=== PATIENT | male | born 1995 | race Caucasian/White ===

== ENCOUNTER 2025-08-29 21:10 | Emergency (ER) | payer OTHER ==
[~2025-08-29] VITALS: Ht 182.9 cm; Wt 69.4 kg
[2025-08-29 21:45] VITALS: BP 137/86; TEMP 99.6; O2SAT 98
== END 2025-08-29 22:59 | disposition home or self-care (01) ==
LOC: ER 21:13
DX: R42 Dizziness and giddiness (principal)